=== PATIENT | female | born 1985 | race Caucasian/White ===

== ENCOUNTER 2017-06-29 21:38 | Emergency (ER) | payer MEDICAID ==
[~2017-06-29] VITALS: Ht 165.1 cm; Wt 68.0 kg
[2017-06-29 22:00] VITALS: BP 118/78
[2017-06-30] MEDS ORDERED: ONDANSETRON HCL 4 MG/2 ML VIAL IM ONE (01:30)
[2017-06-30] MEDS ORDERED: KETOROLAC TROMETH 60MG/2ML VIAL IM ONE (01:30)
== END 2017-06-30 01:18 | disposition home or self-care (01) ==
LOC: ER 21:48
DX: G43.909 Migraine, unspecified, not intractable, without status migrainosus (principal)
CPT/HCPCS: 96372; 99283; J1885; J2405